=== PATIENT | male | born 1975 | race Caucasian/White ===

== ENCOUNTER 2016-12-28 23:21 | Emergency (ER) | payer OTHER ==
[~2016-12-28] VITALS: Ht 177.8 cm; Wt 105.2 kg
[~2016-12-28 23:21] MED LIST: AUGMENTIN 875875 MG PO; PERCOCET 325 MG1 TA2 PO
[2016-12-28 23:29] VITALS: BP 162/87
--- NOTE | 2016-12-29 00:15 | ED HEAD/FACIAL INJ COMPLAINT ---
History of Present Illness General Chief Complaint: Sore Throat, Dental Pain Stated Complaint: DENTAL ABSCESS/ FACE SWOLLEN Source: patient, family Exam Limitations: no limitations Vital Signs & Intake/Output Vital Signs & Intake/Output Vital Signs Date Time Temp Pulse Resp B/P Pulse O2 O2 Flow FiO2 Ox Delivery Rate 12/28 2329 98.9 100 20 162/87 98 Room Air ED Intake and Output 12/29 0000 12/28 1200 Intake Total Output Total Balance Patient 232 lb Weight Allergies Coded Allergies: NO KNOWN ALLERGIES (01/14/12) Reconcile Medications Amoxicillin/Clavulanate Potass (Amox-Clav 875-125 MG Tablet) 875 MG-125 MG TABLET 1 TAB PO BID INFECTION Amoxicillin/Potassium Clav (Augmentin 875-125 Tablet) 875 MG-125 MG TABLET 1 TAB PO BID CELLULITIS/SINUSITIS/ABSCESS OXYCODONE HCL/ACETAMINOPHEN (Percocet 5-325 MG Tablet) 325 MG/5 MG TAB 1-2 TAB PO Q4-6 PRN PRN PAIN Sulfamethoxazole/Trimethoprim (Bactrim Ds Tablet) 800 MG-160 MG TABLET 1 TAB PO BID CELLULITIS/ABSCESS Triage Note: RECEIVED 41 YO MALE C/O FACIAL SWELLING X 2 DAYS. 2 DAYS AGO, HE WAS GETTING SORENESS IN LEFT NARE AND LAST NIGHT, HE GOT ALOT OF BLOOD TINGED PURULENT DRAINAGE FROM LEFT NARE. SWELLING NOTED TO NOSE AND CHEEK AREA Triage Nurses Notes Reviewed? yes Onset: Gradual Severity: moderate Location: left knee or left cheek left upper gumline Method of Injury: unknown Loss of Consciousness: no loss of consciousness Associated Symptoms: left cheek swelling HPI: 41-year-old gentleman presents with 2-3 day history of left cheek swelling left upper gum pain and a small area of drainage from his left nare. He states that he scratched the inside of his left nare. He subsequently developed a small area of purulent drainage, he states. He then also developed some left cheek redness swelling and tenderness as well as some left upper gum pain and swelling as well. He has no fever or chills. He is able to swallow and speak without problem. He is otherwise well. Past History Travel History Traveled to [place] past 21 day No Medical History Any Pertinent Medical History? 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 Hx Contributory? No Review of Systems Review of Systems Constitutional: Reports: no symptoms. EENTM: Reports: no symptoms. Respiratory: Reports: no symptoms. Cardiovascular: Reports: no symptoms. GI: Reports: no symptoms. Genitourinary: Reports: no symptoms. Musculoskeletal: Reports: no symptoms. Skin: Reports: no symptoms. Neurological/Psychological: Reports: no symptoms. Hematologic/Endocrine: Reports: no symptoms. Immunologic/Allergic: Reports: no symptoms. All Other Systems: Reviewed and Negative Physical Exam Physical Exam General Appearance: well developed/nourished, mild distress Head: atraumatic, normal appearance Eyes: Bilateral: PERRL, EOMI. Ears, Nose, Throat: normal pharynx, hearing grossly normal, IN LEFT NARE, 0.5CM SMALL ABSCESS, FREELY DRAINING, left cheek with an area of 4 x 6 cm of induration, erythema, tenderness., left upper gumline mild tenderness to palpation. Neck: normal inspection, supple Respiratory: normal breath sounds Cardiovascular: regular rate/rhythm Gastrointestinal: soft, non-tender Back: normal inspection Extremities: normal inspection, normal range of motion, no edema Psychiatric: awake, alert, oriented x 3 Cranial Nerves: normal hearing, normal speech, PERRL Coordination/Gait: normal gait Motor/Sensory: no motor/sensory deficits Skin: intact, normal color, warm/dry Lymphatic: no anterior cervical ashley Progress Differential Diagnosis: left nasal cellulitis versus abscess versus facial cellulitis versus dental abscess. Plan of Care: Current Medications Sig/Areli Start time Last Medication Dose Stop Time Status Admin Amoxicillin/ 1,000 MG ONCE ONE 12/29 29 UNVr Clavulanate Potassium 12/29 30 (Augmentin) Lidocaine 15 ML ONCE ONE 12/29 29 UNVr (Xylocaine Viscous) 12/29 30 Trimethoprim/ 1 TAB ONCE ONE 12/29 14 UNVr Sulfamethoxazole 12/30 15 (Bactrim DS) Departure Departure Disposition: HOME OR SELF CARE Condition: Stable Clinical Impression Primary Impression: Facial cellulitis Secondary Impressions: Nasal abscess Referrals: ANGELIQUE PECK (PCP/Family) Departure Forms: Customer Survey General Discharge Information Prescriptions: Current Visit Scripts Sulfamethoxazole/Trimethoprim (Bactrim Ds Tablet) 1 TAB PO BID #28 TAB Amoxicillin/Potassium Clav (Augmentin 875-125 Tablet) 1 TAB PO BID #28 TAB Comments Patient with small draining abscess in his left nare. This likely represents a staff infection. We'll treat with Bactrim to cover for MRSA as well as Augmentin which would cover oral ramy. Close follow-up encouraged.
[2016-12-29] MEDS ORDERED: AUGMENTIN 875-1 EACH PO (00:17)
[2016-12-29] MEDS ORDERED: BACTRIM DS TAB1 EACH PO (00:17)
== END 2016-12-29 00:34 ==
LOC: ERH 23:21
DX: J32.9 Chronic sinusitis, unspecified (principal); L03.211 Cellulitis of face; Z72.0 Tobacco use
CPT/HCPCS: J3490

== ENCOUNTER 2018-02-09 00:29 | Emergency (ER) | payer OTHER ==
[~2018-02-09] VITALS: Ht 177.8 cm; Wt 105.2 kg
[~2018-02-09 00:29] MED LIST changes: +AUGMENTIN 875-1 EACH PO; +BACTRIM DS TAB1 EACH PO; +BLEPH-105 ML OPH; +DICLOFENAC SOD2.5 M1 OPH
[2018-02-09] MEDS ORDERED: VIAGRA100 M1 PO (00:41)
--- NOTE | 2018-02-09 00:50 | ED SKIN/ALLERGY COMPLAINT ---
History of Present Illness General Chief Complaint: General Adult Stated Complaint: "CYST LT UNDER ARM" Source: patient, family, old records Exam Limitations: no limitations Vital Signs & Intake/Output Vital Signs & Intake/Output Vital Signs Date Time Temp Pulse Resp B/P B/P Pulse O2 O2 Flow FiO2 Mean Ox Delivery Rate 02/09 0147 97.0 95 20 141/85 99 Room Air 02/09 0040 Room Air 02/09 0038 96.7 84 20 146/87 97 Room Air Allergies Coded Allergies: NO KNOWN ALLERGIES (01/14/12) Reconcile Medications Doxycycline Hyclate (Vibramycin) 100 MG CAPSULE 1 CAP PO BID cellulitis Ibuprofen 600 MG TABLET 1 TAB PO Q6P PRN pain with food Sildenafil Citrate (Viagra) 100 MG TABLET 1 TAB PO DAILY NEEDED TESTOSTERONE PER PT (Reported) 1 hour before sexual activity Tramadol HCl (Ultram) 50 MG TABLET 1 TAB PO Q6P PRN severe pain Triage Note: PT TO TRIAGE C/O CYST UNDER L ARM, FIRST NOTICED A FEW DAYS AGO AND HAS PROGRESSIVELY GOT WORSE PER PT. UNVISUALIZED IN TRIAGE. PT REPORTS TOOK DOXYCYCLINE 100MG ONE DOSE JUST STUDENT SUPPORT ADVISOR. PER PT WAS GIVEN MEDICINE FOR HIS DIVERTICULITIS. Triage Nurses Notes Reviewed? yes Onset: 3 days Duration: day(s):, constant, continues in ED Timing: recent history Severity: moderate Location: extremities Possible Factors: no cause identified Associated Symptoms: change in skin texture, rash, swelling/mass/lumps HPI: Several days after shaving his left axilla he developed increasing pain swelling redness with fluctuance. He denies fever chills nausea vomiting diarrhea abdominal pain chest pain shortness breath headache dysuria bleeding. Past History Travel History Traveled to [place] past 21 day No Medical History Any Pertinent Medical History? 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 Hx Contributory? No Review of Systems Review of Systems Constitutional: Reports: no symptoms. EENTM: Reports: no symptoms. Respiratory: Reports: no symptoms. Cardiovascular: Reports: no symptoms. GI: Reports: no symptoms. Genitourinary: Reports: no symptoms. Musculoskeletal: Reports: no symptoms. Skin: Reports: see HPI, rash. Neurological/Psychological: Reports: no symptoms. Hematologic/Endocrine: Reports: no symptoms. Immunologic/Allergic: Reports: no symptoms. All Other Systems: Reviewed and Negative Physical Exam Physical Exam General Appearance: well developed/nourished, mild distress Head: atraumatic Eyes: Bilateral: PERRL, EOMI. Ears, Nose, Throat: normal pharynx, normal ENT inspection, hearing grossly normal Neck: normal inspection, supple Respiratory: normal breath sounds Cardiovascular: regular rate/rhythm Peripheral Pulses: 4+ carotid (R), 4+ carotid (L) Gastrointestinal: soft, non-tender Back: normal inspection, normal range of motion, no vertebral tenderness Extremities: normal inspection, normal range of motion, no edema Neurologic/Psych: awake, alert, oriented x 3, normal mood/affect Reflexes: 2+: bicep (R), bicep (L). Skin: intact, rash Skin Problem Location: upper extremities Skin Problem Character: abcess Lymphatic: no anterior cervical ashley Progress Differential Diagnosis: abscess/cellulitis, allergic reaction Plan of Care: Orders Procedure Date/time Status Durable Medical Equipment 02/09 0142 Active Departure Departure Time of Disposition: 127 Disposition: HOME OR SELF CARE Condition: Stable Clinical Impression Primary Impression: Abscess of axillary fold Referrals: Gini STOUT,Stephania Ellis (PCP/Family) Additional Instructions: Return in 2 days for wick removal if it has not fallen out Departure Forms: Customer Survey General Discharge Information Prescriptions: Current Visit Scripts Doxycycline Hyclate (Vibramycin) 1 CAP PO BID #20 CAP Ibuprofen 1 TAB PO Q6P PRN pain #30 TAB with food Tramadol HCl (Ultram) 1 TAB PO Q6P PRN severe pain #30 TAB Procedures Incision and Drainage Site: Left axilla Blade Size: 10 I & D Procedure: Yes: betadine prep, sterile drapes applied, sterile dressing applied, wick placed.
[2018-02-09] MEDS ORDERED: ULTRAM50 M1 PO (01:32)
[2018-02-09] MEDS ORDERED: IBUPROFEN600 M1 PO (01:32)
[2018-02-09] MEDS ORDERED: VIBRAMYCIN100 MG PO (01:32)
[2018-02-09 01:47] VITALS: BP 141/85
== END 2018-02-09 01:48 ==
LOC: ERH 00:29
DX: L02.412 Cutaneous abscess of left axilla (principal)
CPT/HCPCS: J2001